=== PATIENT | female | born 1940 | race Caucasian/White ===

== ENCOUNTER 2023-05-30 09:20 | Outpatient (AMB) | payer MEDICARE, OTHER, SELFPAY ==
--- NOTE | 2023-05-30 10:24 | MHC.OFFWIV ---
Intake Vital Signs 05/30/23 10:36 Height 5 ft 9 in Weight 184 lb BMI 27.2 BP 130/68 Blood Pressure Location Lt brachial Position Sitting Pulse 97 Pulse Source Pulse Oximeter Temp 98.1 F Temp Source Oral Pulse Oximetry (%) 97 Oxygen Delivery Method Room Air Intake Visit Reasons: EP, sore throat, cough ([phone]) Intake Note: Pt is here today c/o sore throat coughing and nasal congestion x4days Allergies cyclobenzaprine [From Flexeril] Adverse Reaction (Verified 05/30/23 10:38) Unknown HPI HPI Comments History of Present Illness Details This is an 82-year-old female with a past medical history of hypertension, hyperlipidemia and hyperthyroidism presenting from home for evaluation of sore throat, cough and nasal congestion she has had for the past 4 days. Patient states that she has been sneezing and coughing over the past 4 days but denies having any fevers, chills, ear pain, chest pain or shortness of breath. Patient also denies having any recent sick contacts however states that her son recently and the will be held this coming week. Review of Systems Const All systems reviewed & are unremarkable except as noted in HPI and below Denies chills, Reports difficulty sleeping (secondary to cough), Reports fatigue and Denies fever(s) Eyes Reports no additional complaints ENT Reports as per HPI, Denies otalgia, Reports hoarseness, Reports nasal congestion and Reports sore throat Card Reports no additional complaints Resp Reports cough Skin/Breast Reports system reviewed and no additional complaints, except as documented Endo Reports fatigue Physical Exam Vital Signs: Last Vital Signs Temp 98.1 F 05/30/23 10:36 Pulse 97 05/30/23 10:36 BP 130/68 05/30/23 10:36 Pulse Ox 97 05/30/23 10:36 Oxygen Delivery Method Room Air 05/30/23 10:36 BMI result Body Mass Index 27.2 Patient is afebrile and not hypoxic. Const General: cooperative, comfortable, no acute distress and well developed Nutritional Appearance: average body habitus Orientation/consciousness: patient oriented x3 Limitations: no limitations HEENT Head: Yes normal to inspection and Yes normocephalic Ears: hearing grossly normal bilaterally, external ears normal, TM normal on the left, EAC's normal and TM abnormal (right TM with erythema, no fluid level, mild bulging) erythematous and with fluid behind the TM General nose exam: Normal external nose present Face and sinus: Yes normal facial exam, No sinus tenderness and No Facial tenderness on exam of face and sinuses Mouth: Normal oral and palatal mucosa present Teeth and gingiva: dentition normal Throat: Yes posterior oropharynx normal and No postnasal drainage Eyes Conjunctivae: conjunctivae normal Sclerae: sclerae normal Pupils: Equal, round and reactive pupils present Neck Lymphatic: no lymphadenopathy noted Resp Effort & Inspection: normal respiratory effort Auscultation: clear to auscultation bilaterally Cardio Rate: regular rate Rhythm: regular rhythm Skin General skin exam: no rashes or lesions noted Neuro General: patient oriented x3 Cranial nerves: Yes Equal, round and reactive pupils present Psych Appearance: grossly normal Mental Status: mental status grossly normal Affect: Sad affect present and No Anxious affect present Attitude: cooperative Thought process: Normal thought process present Thought content: Normal thought content present Insight: Good insight present (Psych) Judgement: Good judgement present (Psych) Results AMB Rapid Strep AMB Rapid Strep Negative Last Edit by Amee Rachel CMA on 05/30/23 10:51 Results Reviewed Results Reviewed: Laboratory Last Values Strep Scn [facility] Negative 05/30/23 10:43 Negative strep screen reviewed with patient. Assessment & Plan Assessment & Plan (1) Upper respiratory infection: Comment: Increase fluids daily, hot tea with honey, follow-up with PCP as needed. Code(s): J06.9 - Acute upper respiratory infection, unspecified (2) Right otitis media: Comment: Amoxicillin TID x 7 days Code(s): H66.91 - Otitis media, unspecified, right ear Orders: Orders AMB Rapid Strep Screen Today Z13.9 - Encounter for screening, unspecified Coding Level of Care Code New Pt Level 3 (98860) Diagnoses Upper respiratory infection J06.9 Right otitis media H66.91 Time Spent (min) 20
[2023-05-30 10:36] VITALS: BP 130/68; PULSE 97; TEMP 36.7; O2SAT 97; BMI 27.2
== END 2023-05-30 11:04 | disposition home or self-care (01) ==
PROVIDERS: PCP Physical Medicine & Rehabilitation; Visit Provider Physician Assistant
DX: J02.9 Acute pharyngitis, unspecified (principal)
CPT/HCPCS: 87880; 99203

== ENCOUNTER 2025-03-21 11:58 | Emergency (ER) | payer MEDICARE, OTHER, SELFPAY ==
--- NOTE | ~2025-03-21 | XR_ITS ---
EXAMINATION: XR CHEST CLINICAL INFORMATION: palpitations COMPARISON: None available. TECHNIQUE: 2 views of the chest were obtained. FINDINGS: Lungs clear. There is no pleural effusion. Heart size is within normal limits. There is atherosclerotic calcification in the aortic knob. XR/XR chest 2V IMPRESSION: No acute disease. Electronically signed by: Dallas Santiago MD 03/21/2025 12:55 PM EDT RP
--- NOTE | 2025-03-21 12:03 | ECG_ITS ---
Test Reason : AFIB Blood Pressure : */* mmHG Vent. Rate : 96 BPM Atrial Rate : * BPM P-R Int : * ms QRS Dur : 98 ms QT Int : 382 ms P-R-T Axes : * -17 22 degrees QTcB Int : 482 ms Atrial fibrillation Incomplete right bundle branch block Septal infarct , age undetermined Abnormal ECG No previous ECGs available Referred By: Generic ED Physician Electronically Signed By: John Phillips
--- NOTE | 2025-03-21 12:10 | ED.GENADULT ---
HPI - General Adult General Chief complaint: Arrhythmia/Palpitations Stated complaint: AFIB Time Seen by Provider: 03/21/25 12:58 Source: patient and old records reviewed Mode of arrival: ambulatory Limitations: no limitations History of Present Illness ED Provider: RIDDHI CORTÉS narrative: 84 yo female with PMH of hyperthyroidism on methimazole, HTN, HLD, who notes for the past week she has noted her HR has been up and down and her apple watch has told her tshe is in afib. She has never had this before. She denies chest pain. She sleeps in recliner at baseline so she denies orthopnea she does not feel her legs are swollen. She is on atenolol. She denies GIB symptoms, falls, prior bleeding. She states she is not interested in staying in the hospital. She has no hx of afib, no heart disease, no prior cardiac work up. Symptoms are on and off. MD complaint: afib Onset (ago): week(s) (1) Radiation: non-radiation Severity: mild Related Data Home Medications ?Medication ?Instructions ?Recorded ?Confirmed amitriptyline 25 mg tablet 25 mg PO BEDTIME 05/30/23 amlodipine 5 mg tablet 5 mg PO DAILY 05/30/23 atenolol 50 mg tablet 50 mg PO DAILY 05/30/23 atorvastatin 40 mg tablet 40 mg PO DAILY 05/30/23 diclofenac sodium 1 % topical gel topical 05/30/23 hydrochlorothiazide 25 mg tablet 25 mg PO DAILY 05/30/23 loratadine 10 mg tablet 10 mg PO DAILY 05/30/23 methimazole 5 mg tablet 5 mg PO DAILY 05/30/23 sennosides 8.6 mg-docusate sodium 1 tab PO BID PRN constipation 05/30/23 50 mg tablet (Stimulant Laxative Plus) tramadol 50 mg tablet 50 mg PO BID PRN 05/30/23 Previous Rx's ?Medication ?Instructions ?Recorded amoxicillin 500 mg capsule 500 mg PO TID #21 caps 05/30/23 apixaban 5 mg tablet (Eliquis) 5 mg PO BID #60 tabs 03/21/25 furosemide 20 mg tablet (Lasix) 20 mg PO DAILY 3 days #3 tabs 03/21/25 metoprolol succinate 50 mg capsule 50 mg PO DAILY #60 ea 03/21/25 sprinkle, ext. release 24 hr Allergies Allergy/AdvReac Type Severity Reaction Status Date / Time cyclobenzaprine (From AdvReac Unknown Verified 03/21/25 12:13 Flexeril) Review of Systems Review of Systems: Constitutional : No Fever, No Chills ENT/Mouth : No sore throat, No Rhinorrhea, No Swallowing Difficulty Eyes: No Eye Pain, No Swelling, No Redness Cardiovascular : No Chest Pain, positive SOB, No Orthopnea, no Edema, pos palpitations Respiratory : No Cough, No Sputum, No Wheezing, positive dyspnea Gastrointestinal : No Nausea, No Vomiting, No Diarrhea, No abdominal Pain, No Hematochezia, No Melena Genitourinary : No Dysuria, No Urinary Frequency, No Hematuria Musculoskeletal : No joint pain, No Myalgias Skin : No Skin Lesions, No rash Neuro : No Weakness, No Numbness, No Dizziness, No Headache All other systems reviewed and are negative [facility] Past Medical History Attestation statement: The following information was validated with the patient. Source: old records reviewed Medical History Afib HTN (hypertension) HLD (hyperlipidemia) Social History Social History (Updated 03/21/25 @ 14:10 by Alexandra Gomez DO) Patient Tobacco Use Status: Tobacco use Unknown Advance Directives: Yes Advance Directives Information Provided: Yes Advance Directives on File: No Physical Exam ED Vital Signs: Vital Signs - 24 hr 03/21/25 12:11 03/21/25 14:02 03/21/25 14:05 Temperature 97.7 F Pulse Rate 106 H 92 Respiratory Rate 18 Blood Pressure 126/71 124/79 126/71 Pulse Oximetry 99 Oxygen Delivery Method Room Air 03/21/25 14:22 03/21/25 15:34 Temperature 97.5 F Pulse Rate 100 84 Respiratory Rate 22 H 15 Blood Pressure 119/64 118/70 Pulse Oximetry 98 98 Oxygen Delivery Method Room Air Room Air BMI result Body Mass Index 26.0 Appearance: Alert. Oriented X3. No acute distress. Eyes: Pupils equal, round and reactive to light. ENT: Pharynx normal. Neck: Normal inspection. Neck supple. CVS: irregular heart rate and rhythm. Pulses normal. Respiratory: No respiratory distress. Breath sounds normal. Abdomen: Soft and nontender. Skin: Skin warm and dry. Normal skin color. Extremities: No lower extremity edema. Neuro: Oriented X 3. No motor deficit. No sensory deficit. Course Course Course Narrative: This is a Rapid Medical Examination (RME) performed by Navneet Abdul PA-C in triage. Full HPI, ROS, assessment and treatment plan per primary provider in the Main ED. Hx: 84 yo F here for eval of palpitations intermittently for 1.5 weeks. asoc chest tightness, dizziness, sob on exertion. her smart watch has been informing her she is in afib. no hx afib. PE/vitals: well appearing Plan: labs, ekg, cxr Medications Administered Discontinued Medications Generic Name Dose Route Start Last Admin Trade Name Freq PRN Reason Stop Dose Admin Furosemide 20 mg 03/21/25 13:38 03/21/25 14:05 Furosemide 20 Mg/2 Ml Vial IVPUSH 03/21/25 13:39 20 mg ONCE ONE Administration Protocol Metoprolol Tartrate 25 mg 03/21/25 13:38 03/21/25 14:02 Metoprolol Tartrate 25 Mg Tablet PO 03/21/25 13:39 25 mg ONCE ONE Administration Protocol Medical Decision Making Medical Decision Making [facility] Narrative: 84 yo female with PMH of hyperthyroidism on methimazole, HTN, HLD here with new onset afib at this time she will get labs, trop x 2, IV lasix, PO metoprolol - her atenolol will be held. I will start her on lasix 20mg daily and hold her amlodipine. Plan to start eliquis. She does not want admission to the hospital. She has no signs of symptoms to suggest VTE. I did offer admit for cards consult, ECHO Differential Diagnosis Differential Diagnoses: The differential diagnosis associated with the presentation includes afib, lyte abnormality denies CP/SOB doubt massive/submassive PE Admission/Observation Consideration of admission/observation: Escalation of care including admission/observation considered refuses admission will start on metoprolol and hold atenolol as well as eliquis denies bleeding history or issues her chadsvasc2 is 4 delt trop is negative does not want to stay Lab Data [facility] Lab Attestation statement: I reviewed the patient's lab results. 03/21/25 12:18 03/21/25 12:18 Labs: Lab Results 09/02/25 09/02/25 Range/Units 12:18 14:16 WBC 9.2 (4.8-10.8) X10*3/uL RBC 4.43 (4.20-5.50) X10*6/uL Hgb 12.7 (12.0-16.0) g/dl Hct 37.6 (37.0-47.0) % MCV 84.9 (80.0-98.0) fL MCH 28.7 (27.0-33.0) pg MCHC 33.8 (31.0-35.0) g/dl RDW 13.4 (11.0-16.0) % Plt Count 241 (160-400) X10*3/uL MPV 9.4 (9.4-12.3) fL Immature Gran % (Auto) 0.2 (0.0-0.4) % Neut % (Auto) 54.7 (45-73) % Lymph % (Auto) 34.4 (20-40) % Hodgeman % (Auto) 8.1 (2-11) % Eos % (Auto) 2.3 (0-4) % Baso % (Auto) 0.3 (0-2) % Lymph # (Auto) 3.2 (1.2-4.9) X10*3/uL Hodgeman # (Auto) 0.7 (0.1-1.2) X10*3/uL Eos # (Auto) 0.2 (0.0-0.4) X10*3/uL Baso # (Auto) 0.0 (0.0-0.2) X10*3/uL Abs Immat Gran (auto) 0.02 (0.00-0.03) X10*3/uL Absolute Neuts (auto) 5.0 (2.0-8.3) x10*3/uL Absolute Nucleated RBC 0.000 (0.0-0.012) X10*3/uL Nucleated RBC % (auto) 0.0 (0.0-0.2) /100WBC Sodium 142 (135-145) mmol/L Potassium 3.7 (3.3-5.1) mmol/L Chloride 101 (96-108) mmol/L Carbon Dioxide 31 H (22-29) mmol/L Anion Gap 14 (12-20) BUN 37 H (9-16) mg/dL Creatinine 1.43 H (0.5-1.4) mg/dL Estim Creat Clear Calc 30.5 Estimated GFR 35 Random Glucose 124 H (60-115) mg/dL Calcium 9.5 (8.4-10.2) mg/dL Magnesium 1.7 (1.6-2.6) mg/dL Total Bilirubin 0.5 (0.0-1.0) mg/dL AST 21 (5-31) U/L ALT 16 (0-31) U/L Alkaline Phosphatase 68 (39-117) U/L Troponin I High Sens 37.1 H 38.2 H (<3.5-17.0) ng/L B-Natriuretic Peptide 415 H (<100) pg/mL Total Protein 7.1 (6.5-8.0) g/dL Albumin 4.3 (3.5-5.0) g/dL Lipase 30 (8-78) U/L TSH 1.33 (0.32-4.0) uIU/mL Independent Interpretation I performed an independent interpretation of an: EKG and Plain X-Ray (no pneumonia no edema) Interpretation: Rate: 96 Rhythm: afib Preemption: left Normal QRS complex. ST T wave : no MAYNOR qTC: 482 prior studies: no prior The study has been interpreted contemporaneously by me. . Radiology Impression Discussion of test interpretation with radiology: I have reviewed the radiologist's reading. External Record Review External record reviewed: Outpatient record Prescription Management I considered prescription management with: Other Discharge Plan Discharge Clinical Impression: Atrial fibrillation Qualifiers: Atrial fibrillation type: paroxysmal Qualified Code(s): I48.0 - Paroxysmal atrial fibrillation Patient Disposition: Home, Self-Care Instructions: A-fib (Atrial Fibrillation) (ED), Blood Thinners (ED) Additional Instructions: you need to STOP your atenolol and amlodipine you need to see your primary care doctor and repeat labs in 2 days return for swelling, dizziness, chest pains, increased trouble breathing or any other concerns on a blood thinner seek medical care for head trauma, black or bloody stools, bleeding that wont stop call cardiology to schedule outpatient appointment it is okay to take tylenol but while on eliquis you cannot take aspirin, aleve, advil, motrin, ibuprofen you were offered admission but declined you are free to return at any time Prescriptions: New metoprolol succinate 50 mg capsule,sprinkle,ER 24hr 50 mg PO DAILY Qty: 60 0RF furosemide [Lasix] 20 mg tablet 20 mg PO DAILY 3 Days Qty: 3 0RF Eliquis 5 mg tablet 5 mg PO BID Qty: 60 1RF No Action amitriptyline 25 mg tablet 25 mg PO BEDTIME amlodipine 5 mg tablet 5 mg PO DAILY atenolol 50 mg tablet 50 mg PO DAILY loratadine 10 mg tablet 10 mg PO DAILY methimazole 5 mg tablet 5 mg PO DAILY atorvastatin 40 mg tablet 40 mg PO DAILY hydrochlorothiazide 25 mg tablet 25 mg PO DAILY sennosides-docusate sodium [Stimulant Laxative Plus] 8.6-50 mg tablet 1 tab PO BID PRN (Reason: constipation) tramadol 50 mg tablet 50 mg PO BID PRN diclofenac sodium 1 % gel topical amoxicillin 500 mg capsule 500 mg PO TID Qty: 21 0RF Print Language: Haitian
[2025-03-21 12:11] VITALS: BP 126/71; PULSE 106; RESP 18; TEMP 36.5; O2SAT 99; BMI 26.0
[2025-03-21 12:22] LABS: MANUAL DIFF FLAG NO
[2025-03-21 12:28] LABS: Hematocrit 37.6 % (37.0-47.0); Hemoglobin 12.7 g/dl (12.0-16.0); Imm Gran Abs Auto 0.02 X10*3/uL (0.00-0.03); Imm Gran Pct Auto 0.2 % (0.0-0.4); Lymphocytes Absolute Auto 3.2 X10*3/uL (1.2-4.9); Mean Corpuscular HGB Conc 33.8 g/dl (31.0-35.0); Mean Corpuscular Hemoglobin 28.7 pg (27.0-33.0); Mean Corpuscular Volume 84.9 fL (80.0-98.0); NRBC Abs Auto 0.000 X10*3/uL (0.0-0.012); NRBC Pct Auto 0.0 /100WBC (0.0-0.2); Platelet Count 241 X10*3/uL (160-400); Red Blood Count 4.43 X10*6/uL (4.20-5.50); White Blood Count 9.2 X10*3/uL (4.8-10.8)
[2025-03-21 12:45] LABS: Troponin-I High Sensitivity 37.1 ng/L (<3.5-17.0)
[2025-03-21 12:47] LABS: Alanine Aminotransferase 16 U/L (0-31); Albumin Level 4.3 g/dL (3.5-5.0); Alkaline Phosphatase 68 U/L (39-117); Anion Gap 14 (12-20); Aspartate Amino Transferase 21 U/L (5-31); Blood Urea Nitrogen 37 mg/dL (9-16); Calcium 9.5 mg/dL (8.4-10.2); Carbon Dioxide 31 mmol/L (22-29); Chloride 101 mmol/L (96-108); Creatinine Clr Calc Pharmacy 30.5; Estimated Glomerular Filt Rate 35; Lipase 30 U/L (8-78); Magnesium 1.7 mg/dL (1.6-2.6); Potassium 3.7 mmol/L (3.3-5.1); Sodium 142 mmol/L (135-145); Total Protein 7.1 g/dL (6.5-8.0)
[2025-03-21 12:53] LABS: B Type Natriuretic Peptide 415 pg/mL (<100)
[2025-03-21 14:02] VITALS: BP 124/79; PULSE 92
[2025-03-21 14:05] VITALS: BP 126/71
[2025-03-21] MEDS: Furosemide 20 MG/2 ML VIAL IVPUSH (14:05)
[2025-03-21 14:22] VITALS: BP 119/64; PULSE 100; RESP 22; O2SAT 98
[2025-03-21 14:48] LABS: Troponin-I High Sensitivity 38.2 ng/L (<3.5-17.0)
--- OUTSIDE RECORDS SUMMARY | 2025-03-21 15:09 | XMS_ITS | Encounter Summary ---
Author Organization [facility] Address [address] [place] [address] Care Team Providers Care Intelligence Clerk Name Role Phone Fabrice Marley Primary Care Provider [phone] Reason for Visit * Reason Onset Date Comments Irregular Heart Beat 03/21/2025 Dizziness 03/21/2025 Encounter Details Date Type Department Care Team ([facility] st Contact Info) Description 03/21/2025 Telephone Adult Medicine [address] [phone] Fabrice Marley PA [address] [place] [address] Social History Tobacco Use Types Packs/Day Years Used Date Smoking Tobacco: Never Smokeless Tobacco: Never Alcohol Use Standard Drinks/Week Comments Yes 0 (1 standard drink = 0.6 oz pur e alcohol) Housing Instability Answer Date Recorde d Are you worried that in the next 2 months you may not have stable housing? No 07/22/2024 Food Access & Nutrition Answer Date Rec orded Do you have access to a vari ety of food including fruits and vegetables? Yes 07/22/2024 Access to Healthcare Answer Date Record ed Within the last 3 months, ho w many times did you visit the emergency department for your medical care? 0 07/22/2024 Health Literacy Answer Date Recorded How often do you need to hav e someone help you when you read instructions, pamphlets, or other written material from your doctor or pharmacy? Never 07/22/2024 Caregiver: How often do you need to have someone help you when you read instructions, pamphlets, or other written material from your doctor or pharmacy? Not on file 07/22/2024 Financial Risk Answer Date Recorded How hard is it for you to pa y for the very basics like food, housing, medical care, and air conditioning / heating? Not very hard 07/22/2024 Transportation Answer Date Recorded Has the lack of transportati on kept you from meetings, work, or from getting things needed for daily living? No Has the lack of transportati on kept you from medical appointments or from getting medications? No 07/22/2024 Social Isolation Answer Date Recorded How often do you feel lonely or isolated from th ose around you? Never 07/22/2024 Food Risk Answer Date Recorded Within the past 12 months we worried whether our food would run out before we got money to buy more. Never true 07/22/2024 Within the past 12 months th e food we bought just didn't last and we didn't have money to get more. Never true 07/22/2024 Dependent Care Answer Date Recorded Do you need help finding or paying for care for your loved ones. For example, childbirth educator or elderly care for an older adult? No 07/22/2024 Education Answer Date Recorded Do you think completing more education or training, like finishing a GED, going to college, or learning a trade, would be helpful for you? No 07/22/2024 Employment and Income Answer Date Recor ded During the last four weeks, have you been actively looking for work? No 07/22/2024 Living Situation Answer Date Recorded What is your living situation? 0 07/22/2024 Comments No Sex and Gender Information Value Date Recorded Sex Assigned at Female 06/02/2024 1:03 PM EST Legal Sex Female 12:40 PM EST Gender Identity Female 06/02/2024 1:03 PM EST Sexual Orientation Choose not to disclose 2023 1:03 PM EST documented as of this encounter Progress Notes * Kyleigh Chairez RN - 03/21/2025 11:20 AM EDT Spoke with the pt Certain times of the day her chest feels tight No chest pressure or chest pain. When it is tight it is difficult to take a deep breath No chest congestion Feels it all the time phone picks up on it a couple times a day. Not occurring at this time She is sometimes a little dizzy, not light headed, no N/V, Prior to this was having a little tingling into the left rian hand. Arms feel equally as strong. Advised no available appt in office today and should be evaluated in the ER for her symptoms. Pt does not want to go to the ER Encouraged ER for eval of symptoms and to call after for follow up. * Brea Thomas - 03/21/2025 10:16 AM EDT Patient call requires triage: Symptoms patient is presenting: Afib,per watch, has been experiencing irregular heartbeat and dizziness. How long has patient had these symptoms?: Thu03/15/25 For ALL patients calling to schedule any appointment (routine, sick visit, follow up, consult, etc.) in the outpatient setting please ask the following questions: Do you have fever of higher than 101, sore throat with difficulty swallowing or severe shortness ofbreath? no If YES to any of these above symptoms, send a message to triage and do not book. Red dot. If no, an audio or video visit should be booked. Have you had close contact with someone with Coronavirus in the last 14 days? no Have you traveled abroad? no Have you traveled recently to another state outside of [place], [place], [place], [place], [place], [place], [place]? no o If yes, did you quarantine for 14 days or have a negative covid test? no If yes to any of the above, patient is not to be scheduled in office until after 14 day quarantine or negative covid test. If pain or injury related was it due to an accident at work or from a motor vehicle accident? If yes, date of accident/Injury: No If yes, gather 3rd alliance party insurance information Third Alliance Party Information: PCP: [facility]te Payor: MEDICARE / Plan: MEDICARE PART A & B / Product Type: Medicare / Irrregular heartbeat. documented in this encounter Plan of Treatment Upcoming Encounters Date Type Department Care Team (Late st Contact Info) Description 03/31/2025 1:00 PM EDT Office Visit Adult Medicine [address] [phone] Fabrice Marley PA [address] [place] [address] 08/03/2025 9:45 AM EST Office Visit Endocrinology [address] [phone] Lizzette Key MD [address] [place] [phone] documented as of this encounter Visit Diagnoses Not on filedocumented in this encounter Additional Health Concerns Assessment Noted Time PHQ-9 Depression Total Score: 0 07/22/19 8:23 AM EST A fall risk assessment has been complete d for the patient 07/22/2024 8:23 AM EST documented as of this encounter Care Teams Intelligence Clerk Relationship Specialty Start Date End Date Fabrice Marley PA [address] [place] [address] PCP - General Internal Medicine 08/30/20 documented as of this encounter
--- OUTSIDE RECORDS SUMMARY | 2025-03-21 15:09 | XMS_ITS ---
Author Name [facility] Organization Unknown Care Team Organization Name Specialty Phone Email Start Date End Da te [facility] 03/08/[address] [facility] Fabrice Marley Primary Care 05/27/2022
--- OUTSIDE RECORDS SUMMARY | 2025-03-21 15:09 | XMS_ITS | Clinical Summary ---
Author Organization [facility] [address] [place] [address] Address [address] [facility] [place] [address] Phone Care Team Providers Care Magnetic Healer Name Role Phone Fabrice Marley Primary Care Provider [phone] Allergies Active Allergy Reactions Criticality Noted Date Comments Cetyl Alcohol Medium 05/21/2012 Cyclobenzaprine Palpitations 07/22/2024 Metronidazole 11/05/2022 Pollen Extracts 11/25/2017 Medications amitriptyline (ELAVIL) 25 mg tablet Take 1 Tab by mouth at bedtime. 9 Active diclofenac (VOLTAREN) 1 % topical gel Apply 4 g topically 4 times daily as needed for Other (arthritis pain). 3 Active fluticasone propionate (FLONASE) 50 mcg/actuation nasal spray 2 Sprays by Each Nare route daily. 4 Active psyllium (METAMUCIL) powder Take by mouth daily Active polyethylene glycol (MIRALAX) 17 gram packet Take 17 g by mouth daily for 3 days. 3 Active aspirin 81 mg EC tablet 1 TABLET DAILY Activ e senna (SENOKOT) 8.6 mg tablet Take 1 tablet (8.6 mg total) by mouth 1 (one) time each day. 3 Active senna-docusate (PERICOLACE) 8.6-50 mg per tablet Take 1 Tablet by mouth 2 times daily as needed for Constipation. 3 Active triamcinolone acetonide (KENALOG-40 INJ) Route: Inject 1 mL into the articular space once for 1 dose. Active methIMAzole (TAPAZOLE) 5 mg tabletIndicatio ns:Hyperthyroid ism Take 1 tablet (5 mg total) by mouth 1 (one) time each day. 90 tablet 3 4 Active amLODIPine (NORVASC) 10 mg tablet Take 1 tablet (10 mg total) by mouth 1 (one) time each day. 90 each 1 5 Active furosemide (LASIX) 20 mg tablet TAKE 1 TABLET DAILY NEEDED FOR LEG SWELLING 90 tablet 3 5 Active hydroCHLOROthia zide (HYDRODIURIL) 25 mg tablet TAKE 1 TABLET DAILY 90 tablet 3 5 Active atorvastatin (LIPITOR) 40 mg tablet TAKE 1 TABLET DAILY 90 tablet 3 5 Active lidocaine (LIDODERM) 5 % patch APPLY 1 PATCH ONTO THE SKIN EVERY 24 HOURS. APPLY FOR NO MORE THAN 12 HOURS IN ANY 24 HOURS PERIOD 90 patch 3 5 Active traMADoL (ULTRAM) 50 mg tablet Take 1 tablet (50 mg total) by mouth 2 (two) times a day if needed for severe pain. Take 1 Tablet by mouth 2 times daily as needed for Pain. Max Daily Amount: 100 mg 14 tablet 5 Active atenoloL (TENORMIN) 50 mg tablet Take 1 tablet (50 mg total) by mouth 1 (one) time each day. 90 each 1 5 Active cetirizine (ZyrTEC) 10 mg tablet Take 1 tablet (10 mg total) by mouth 1 (one) time each day. 90 tablet 1 5 Active losartan (Cozaar) 25 mg tablet Take 1 tablet (25 mg total) by mouth 1 (one) time each day. 90 each 1 5 Active potassium chloride (Klor-Con) 20 mEq packet Take 20 mEq by mouth 1 (one) time each day. 30 packet 5 Active Active Problems Problem Noted Date Diagnosed Date Sacroiliac joint pain 11/21/2024 Chronic lower back pain 11/21/2024 Hypertension 11/21/2024 History of bilateral knee replacement 11/21/2024 Facet arthropathy, lumbosacral 11/21/2024 Constipation 11/21/2024 Basal cell carcinoma 11/21/2024 Aortic stenosis 09/29/2024 Microalbuminuria 11/04/2022 CKD (chronic kidney disease) stage 3, GFR 30-59 ml/min ([facility] V24, [facility] V28) 12/04/2021 Symptomatic varicose veins, bilateral 2021 Spinal stenosis of lumbar region 01/21/2019 Overview (04/24/2024): Follows with [facility] Overweight (BMI 25.0-29.9) 12/16/2018 Hyperthyroidism 10/07/2016 Overview (04/24/2024): Followed by Dr. Hansen Peripheral polyneuropathy 02/11/2016 Onychomycosis 09/10/2015 Prediabetes 12/29/2008 Urinary incontinence 12/27/2007 Carpal tunnel syndrome 05/13/2007 Overview (04/24/2024): Bilateral CTR Diverticulosis 12/10/2006 Overview (04/24/2024): also history of diverticulitis. Factor V Leiden mutation ([facility] V24) 6 Overview (04/24/2024): Per Dr Arauz biscuit maker anticoagulation not needed Allergic rhinitis 06/16/2005 Essential hypertension, benign 06/16/2005 Overview (04/24/2024): Last Assessment & Plan: Referred to PCP for improved control. Pure hypercholesterolemia 06/16/2005 Encounters Date Type Department Care Team Description 03/21/2025 Telephone Adult Medicine [address] [phone] Fabrice Marley PA 02/07/2025 8:56 AM EDT - 02/07/2025 11:59 PM EDT Hospital Encounter Radiology Department - [address] [phone] Multiple thyroid nodules Discharge Disposition: Home or Self Care 02/07/2025 Telephone Adult Medicine [address] [phone] Fabrice Marley PA 01/31/2025 11:00 AM EDT Office Visit Endocrinology [address] [phone] Lizzette Key MD Hyperthyroidism (Primary Dx); Multiple thyroid nodules 01/31/2025 Telephone Adult [address] [phone] Fabrice Marley PA 01/17/2025 8:30 AM EDT Office Visit Adult [address] [phone] Monique Smith PA Dizziness (Primary Dx); Fatigue, unspecified type; Constipation, unspecified constipation type; Decreased appetite; Hyperthyroidism 01/17/2025 Telephone Adult [address] [phone] Monique Smith PA 12/19/2024 12:30 PM EDT Office Visit Adult [address] [phone] Monique Smith PA Essential hypertension, benign (Primary Dx); Stage 3b chronic kidney disease ([facility] V24, [facility] V28) from Last 3 Months Immunizations Name Administration Dates Next Due H1N1 Inj Preservative Free 08/08/2009 Influenza Quadravalent, MDCK , 0.5ml, with preservative (Flucelvax) 6mo and older 03/26/2017 Influenza trivalent, 0.5mL ( Fluzone High-dose) 65yo and older 03/28/2024,03/25/2023,04/08/2022,03/01,04/07/2020,03/08/2018,03/31/2016 ,03/20/2015 Influenza trivalent, with pr eservative (Fluzone; Afluria) 6mo and older 04/23/2014,03/29/2013,04/06/2012,03/25,04/03/2010,04/20/2009,05/02/2008 ,04/19/2007,05/07/2006,04/21/2005 Influenza, Unspecified 04/08/2020,03/20/2019 Pfizer SARS-CoV-2 COVID-19, mRNA, LNP-S, preservative free 04/08/2022 Pneumococcal conjugate 13 va lent (Prevnar 13, PCV13) 2mo and older 02/14/2015 Pneumococcal polysaccharide 23 valent (Pneumovax 23) 2yo and older 05/10/2004 Td Tetanus diptheria (Tdvax) 7yo and older 09/28/2012,04/25/2002 Td, Unspecified 04/25/2002 Tdap Tetanus diptheria acell ular pertussis (Boostrix; Adacel) 7yo and older 06/21/2024 Zoster recombinant (Shingrix ) 19yo and older 12/23/2018,10/16/2018 Surgical History Surgery Date Site/Laterality Comments OTHER SURGICAL HISTORY PROCEDURE: HISTORY OTHER; COMMENT: vein stripping and injections COLONOSCOPY W/ BIOPSIES 11/29/2001 PROCEDURE: RI COLONOSCOPY W/BIOPSY SINGLE/MULTIPLE; COMMENT: Solitary diminutive tubular adenoma COLONOSCOPY W/ BIOPSIES 12/10/2006 PROCEDURE: RI COLONOSCOPY W/BIOPSY SINGLE/MULTIPLE; COMMENT: Diminutive polyp-tub adenoma TONSILLECTOMY PROCEDURE: HISTORICAL TONSILLECTOMY OTHER SURGICAL HISTORY 2010 PROCEDURE: HISTORY OTHER; COMMENT: bilat vein surgery laser dr morin COLONOSCOPY 08/20/2011 PROCEDURE: RI COLONOSCOPY FLX DX W/COLLJ SPEC WHEN PFRMD; COMMENT: diverticulosis; no polyps BREAST BIOPSY PROCEDURE: BX BREAST; PERC NEEDLE CORE W/IMAG GUID; COMMENT: cyst aspir TOTAL KNEE ARTHROPLASTY 2008 Right PROCEDURE: HISTORICAL TOTAL KNEE REPLACE CATARACT EXTRACTION PROCEDURE: HISTORICAL CATARACT REMOVAL APPENDECTOMY PROCEDURE: HISTORICAL APPENDECTOMY TOTAL KNEE ARTHROPLASTY Left PROCEDURE: HISTORICAL TOTAL KNEE REPLACE HYSTERECTOMY PROCEDURE: HISTORICAL TOTAL HYSTERECTOMY WITH BSO; COMMENT: done for family hx ovary and BRCA Medical History Medical History Date Comments Unspecified venous (peripher al) insufficiency 12/26/2005 DX:Unspecified venous (perip heral) insufficiency Carpal tunnel syndrome 05/13/2007 DX:Carpal tunnel syndrome Hyperthyroidism 10/07/2016 DX:Hyperthyroidi sm; COMMENT: Followed by Dr. Hansen History of basal cell carcin tyler of skin 01/13/2019 DX:History of basal cell car cinoma of skin; COMMENT: Left anterior thigh - ED&C 02/2006 Right upper posterior thigh/ Superficial type- imiquimod Left anterior tibia 12/2008. Superficial type - Right anterior thigh 12/2008. Superficial type Left deltoid 12/2009. Superficial type Left thigh 12/2009. Superficial type Right chest, infiltrative type 08/2017 - excised Mid upper back, superficial type, 09/08* History of squamous cell carcinoma 01/13/2019 DX:History of squamous cell carcinoma; COMMENT: Mid abdomen 02/2018, Right anterior tibia - ED&C August 2015, Allergic rhinitis 06/16/2005 DX:Allergic rh initis Diverticulosis 12/10/2006 DX:Diverticulosi s; COMMENT: also history of diverticulitis. Factor V Leiden mutation (CM S/HCC V24) 03/30/2006 DX:Factor V Leiden mutation (HCC); COMMENT: Per Dr Arauz correction anticoagulation not needed Osteoarthritis 05/29/2008 DX:Osteoarthriti s; COMMENT: Lumbar Spine, Shoulders, Hips, Feet Total knee replacement statu s, bilateral 01/21/2019 DX:Total knee replacement st atus, bilateral Spinal stenosis of lumbar region 01/21/2019 DX:Spinal stenosis of lumbar region Lumbar radiculitis 01/21/2019 DX:Lumbar rad iculitis Urinary incontinence 12/27/2007 DX:Urinary incontinence Pure hypercholesterolemia 06/16/2005 DX:Pur e hypercholesterolemia Prediabetes 12/29/2008 DX:Prediabetes Peripheral polyneuropathy 02/11/2016 DX:Per ipheral polyneuropathy Onychomycosis 09/10/2015 DX:Onychomycosis Obesity (BMI 30.0-34.9) 12/16/2018 DX:Obesi ty (BMI 30.0-34.9) History of colonic polyps 12/25/2005 DX:His tory of colonic polyps; COMMENT: Diminutive tubular adenoma x 1 at colonoscopy 11/29/2001. Diminutive colonic polyp at colonoscopy 12/10/2006: diminutive tubular adenoma. CN 08/20/2011: diverticulosis; no polyps. No screening needed in the future. Family history of ovarian cancer 08/08/2011 DX:Family history of ovarian cancer Family history of breast can cer in first degree relative 08/08/2011 DX:Family history of breast cancer in first degree relative Essential hypertension, benign 06/16/2005 D X:Essential hypertension, benign Change in bowel habits DX:Change in bowel habits History of diverticulitis DX:His tory of diverticulitis Constipation DX:Constipation Family History Medical History Relation Name Comments Breast cancer Brother 1 Prostate cancer Brother 2 Coronary artery disease Father Other: cancer,other Maternal Grandmother young-possibly breast or ovarian cancer Breast cancer Mother dx'd late 70s Ovarian cancer Mother dx'd late 70s CA Breast ag e 70 Breast cancer Son Other cancer Uncle maternal possib ly bone Relation Name Status Comments Brother 1 Brother 2 Brother 3 (Age 68) cancer nichole ast Brother 4 (Age 70) Brother 5 (Age 69) heart Brother 6 (Age 60'S) HEART Father Maternal Grandmother Mother dx'd late 70s breast cancer ovarian. Cancer Sister Alive 1/2 sisteer Son Alive Uncle Social History Tobacco Use Types Packs/Day Years Used Date Smoking Tobacco: Never Smokeless Tobacco: Never Tobacco Cessation:Counseling Given: Not Answered Alcohol Use Standard Drinks/Week Comments Yes 0 [...] care for your loved ones. For example, home child care provider or elderly care for an older adult? [...] not to disclose 2023 1:03 PM EST Obstetrics History Para Term AB IAB SAB Ectopic Multiple Livin g Live Births 2 2 2 2 Date Outcome GA Total Labor Labor/2nd/3rd Weight Sex Type Anes PTL Marie A1 A5 Name Clin Term Term Last Filed Vital Signs Vital Sign Reading Time Taken Comments Blood Pressure 120/58 01/31/2025 10:51 AM EDT Pulse 61 01/31/2025 10:51 AM EDT Temperature 36.6 C (97.9 F) 01/17/2025 7:52 AM EDT Respiratory Rate 14 01/31/2025 10:51 AM EDT Oxygen Saturation 100% 11/30/2024 8:58 AM EDT Inhaled Oxygen Concentration - - Weight 83.9 kg (185 lb) 01/31/2025 10:51 AM EDT Height 175.3 cm (5' 9 ) 01/31/2025 10:51 AM EDT Body Mass Index 27.32 01/31/2025 10:51 AM EDT Plan of Treatment Upcoming Encounters Date Type Department Care Team (Late st Contact Info) Description 03/31/2025 1:00 PM EDT Office Visit Adult Medicine [facility] [address] [place] [address] Fabrice Marley PA [address] [place] [phone] 08/03/2025 9:45 AM EST Office Visit Endocrinology [facility] [address] [place], [place] [phone] Lizzette Key MD [address] [place] [address] Health Maintenance Due Date Last Done Comments RSV Immunization Adult Patients (1 - 1-dose 75+ series) 2013 Medicare Annual Wellness Visit 06/15/2024 06/15/2023 COVID-19 Vaccine ( season) 2025 05/02/2023, 04/08/2022, 10/22/2021, Additional history exists Influenza Vaccine (#1) 2025 , 03/25/2023, 04/08/2022, Additional history exists Falls Risk Assessment 07/22/2025 07/22/2024, 023 Social Influencers of Health Screening 07/22/2025 07/22/2024 Hypertension/CHF/CAD Annual BMP Blood Test 01/31/2026 01/31/2025, 01/17/2025, 12/01/2024, Additional history exists Cholesterol Screening (Lipid Panel) 10/24/2029 10/24/2024, 06/22/2024, 12/28/2023, Additional history exists DTaP,Tdap,and Td Vaccines (5 - Td or Tdap) 06/21/2034 06/21/2024, 09/28/2012, 04/25/2002, Additional history exists Pneumococcal Vaccine: 50+ Years Completed 02/14/2015, 05/10/2004 Zoster Vaccines Completed 12/23/2018, 10/16/2018 Depression Screening Completed 07/22/2024, 06/15/20 23 HIB Vaccines Aged Out No longer eligi ble based on patient's age to complete this topic HPV Vaccines Aged Out No longer eligi ble based on patient's age to complete this topic Hepatitis A Vaccines Aged Out No long er eligible based on patient's age to complete this topic Hepatitis B Vaccines Aged Out No long er eligible based on patient's age to complete this topic IPV Vaccines Aged Out No longer eligi ble based on patient's age to complete this topic MMR Vaccines Aged Out No longer eligi ble based on patient's age to complete this topic Meningococcal ACWY Vaccine Aged Out N o longer eligible based on patient's age to complete this topic Meningococcal B Vaccine Aged Out No l onger eligible based on patient's age to complete this topic Osteoporosis Screening (Bone Density Screening) Discontinued RSV Immunization Patients Under 20 months Aged Out No longer eligible based on patient's age to complete this topic Varicella Vaccines Aged Out No longer eligible based on patient's age to complete this topic Procedures Procedure Name Priority Date/Time Associated Diagnosis Comments US HEAD NECK SOFT TISSUE Routine 02/07/2025 9:16 AM EDT Multiple thyroid nodules BASIC METABOLIC PANEL Routine 01/31/2025 11:44 AM EDT Hypokalemia COMPREHENSIVE METABOLIC PANEL Routine 01/17/2025 9:06 AM EDT Dizziness COMPLETE BLOOD COUNT Routine 01/17/2025 9:06 AM EDT Dizziness THYROID STIMULATING HORMONE WITH REFLEX TO FREE T4 AND FREE T3 Routine 01/17/2025 9:06 AM EDT Hyperthyroidism ECG 12-LEAD TRACING ONLY Routine 01/17/2025 8:53 AM EDT Dizziness LIPID PANEL WITH REFLEX TO DIRECT LDL Routine 10/24/2024 2:07 PM EDT Pure hypercholesterolem ia Hyperthyroidism Essential hypertension, benign HM DEPRESSION SCREENING Routine 06/15/2023 FALLS RISK ASSESSMENT Routine 06/15/2023 from Last 3 Months or Most Recently Relevant to Health Maintenance Results * US Head Neck Soft Tissue (02/07/2025 9:16 AM EDT) Anatomical Region Laterality Modality Head and Neck Ultrasound 02/07/2025 11:0 6 AM EDT Narrative 02/07/2025 11:10 AM EDT Thyroid ultrasound. History follow-up on thyroid nodules. Thyroid gland is heterogeneous in echotexture with increased vascularity on color Doppler examination and presence of innumerable bilateral nodules. Prior ultrasound on 03/29/2024. Comparison with prior studies is limited. The largest nodules were documented. Right thyroid lobe measures 5.6 x 2.3 x 2.4 cm, volume 16.2 cm. There is arm mostly cystic upper pole nodules with echogenic are foci measuring 0.9 x 0.8 x 0.8 cm, previously 1.2 x 0.8 x 0.8 cm. There is a solid mixed echogenicity circumscribed nodule in the midpole measuring 1.6 x 1.4 x 1.4 cm, previously 1.7 x 1.4 x 1.5 cm. There is a mixed echogenicity circumscribed nodule in the lower pole measuring 1.4 x 1.1 x 1.3 cm, previously 1.4 x 1.2 x 1.3 cm. Left thyroid lobe measures 5.1 x 2.4 x 2.3 cm, volume 14.7 cc. There is a circumscribed mixed echogenicity nodule in the upper pole measuring 1.1 x 1.7 x 1.4 cm, previously 1.1 x 1.8 x 1.3 cm. There is a mixed echogenicity circumscribed nodule with cystic and solid components in the lower pole measuring 1.3 x 1.2 x 1.6 cm, previously 1.4 x 1.8 x 2 cm. Isthmus measures 5 mm in thickness. CONCLUSIONS: Heterogeneous in echotexture multinodular thyroid gland with increased vascularity on color Doppler examination. Innumerable bilateral nodules with difficulties in comparison. The dominant nodules are without significant interval change or slightly smaller than on prior study. -------- FINAL REPORT -------- Dictated By: Riana Cobian Dictated Date: 02/07/2025 11:06 ET Assigned Physician: Riana Cobian Reviewed and Electronically Signed By: Riana Cobian Signed Date: 02/07/2025 11:10 ET Workstation ID: [id number] Transcribed By: Self Edit Transcribed Date: 02/07/2025 11:06 ET Procedure Note Riana Cobian MD - 02/07/2025 Thyroid ultrasound. History follow-up on thyroid nodules. Thyroid gland is heterogeneous in echotexture with increased vascularityon color Doppler examination and presence of innumerable bilateralnodules. Prior ultrasound on 03/29/2024. Comparison with prior studies is limited.The largest nodules were documented. Right thyroid lobe measures 5.6 x 2.3 x 2.4 cm, volume 16.2 cm. There isarm mostly cystic upper pole nodules with echogenic are foci measuring 0.9x 0.8 x 0.8 cm, previously 1.2 x 0.8 x 0.8 cm. There is a solid mixedechogenicity circumscribed nodule in the midpole measuring 1.6 x 1.4 x 1.4cm, previously 1.7 x 1.4 x 1.5 cm. There is a mixed echogenicitycircumscribed nodule in the lower pole measuring 1.4 x 1.1 x 1.3 cm,previously 1.4 x 1.2 x 1.3 cm. Left thyroid lobe measures 5.1 x 2.4 x 2.3 cm, volume 14.7 cc. There is acircumscribed mixed echogenicity nodule in the upper pole measuring 1.1 x1.7 x 1.4 cm, previously 1.1 x 1.8 x 1.3 cm. There is a mixed echogenicitycircumscribed nodule with cystic and solid components in the lower polemeasuring 1.3 x 1.2 x 1.6 cm, previously 1.4 x 1.8 x 2 cm. Isthmus measures 5 mm in thickness. CONCLUSIONS: Heterogeneous in echotexture multinodular thyroid gland withincreased vascularity on color Doppler examination. Innumerable bilateralnodules with difficulties in comparison. The dominant nodules are withoutsignificant interval change or slightly smaller than on prior study. -------- FINAL REPORT -------- Dictated By: Riana Cobian Dictated Date: 02/07/2025 11:06 ET Assigned Physician: Riana Cobian Reviewed and Electronically Signed By: Riana Cobian Signed Date: 02/07/2025 11:10 ET Workstation ID: [id number] Transcribed By: Self Edit Transcribed Date: 02/07/2025 11:06 ET Lizzette Key MD [facility] PROCEDURES Final Result * (ABNORMAL) Basic metabolic panel (01/31/2025 11:44 AM EDT) Sodium 135 133 - 145 mmol/L LAB CHEMISTRY METHOD 01/31/2025 4:49 PM [facility] Potassium 3.6 3.5 - 5.5 mmol/L LAB CHEMISTRY METHOD 01/31/2025 4:49 PM [facility] Chloride 99 96 - 110 mmol/L LAB CHEMISTRY METHOD 01/31/2025 4:49 PM [facility] CO2 29 21 - 32 mmol/L LAB CHEMISTRY METHOD 01/31/2025 4:49 PM [facility] Anion Gap 7 3 - 11 LAB CHEMISTRY METHOD 01/31/2025 4:49 PM [facility] Glucose 154(H) 70 - 100 mg/dL LAB CHEMISTRY METHOD 01/31/2025 4:49 PM [facility] BUN 23 5 - 25 mg/dL LAB CHEMISTRY METHOD 01/31/2025 4:49 PM [facility] Creatinine 1.40(H) 0.50 - 1.10 mg/dL LAB CHEMISTRY METHOD 01/31/2025 4:49 PM [facility] eGFR 37(L) >=60 mL/min/1. 73m2 LAB CHEMISTRY METHOD 01/31/2025 4:49 PM [facility] Comment:Calculation based on the Chronic Kidney Disease Epidemiology Collaboration (CKD-EPI) equation refit without adjustment for race. BUN/Creatinine Ratio 16.4 LAB CHEMISTRY METHOD 01/31/2025 4:49 PM EDT [facility] Calcium 10.1 8.5 - 10.5 mg/dL LAB CHEMISTRY METHOD 01/31/2025 4:49 PM EDT [facility] Blood Venous blood specimen / Unknown Venipuncture / Unknown 01/31/2025 11:44 AM EDT 01/31/2025 11:44 AM EDT us Monique Luis PA LAB BLOOD ORDERABLES Final Resul t Performing Organization Address [facility]/ZIP Co de Phone Number [facility] [address] [place] [address], [place] [phone] * Thyroid stimulating hormone with reflex to free t4 and free t3 (01/17/2025 9:06 AM EDT) TSH 1.76 0.40 - 4.00 mcIU/mL LAB CHEMISTRY METHOD 01/17/2025 2:59 PM EDT [facility] Blood Venous blood specimen / Unknown Venipuncture / Unknown 01/17/2025 9:06 AM EDT 01/17/2025 9:06 AM EDT us Monique VALLES LAB BLOOD ORDERABLES Final Resul t Performing Organization Address [facility]/ZIP Co de Phone Number [facility] [address] [place] [address], [place] [phone] * Complete blood count (01/17/2025 9:06 AM EDT) WBC 9.9 4.8 - 10.8 K/mcL LAB HEMETOLOGY METHOD 01/17/2025 11:22 AM EDT [facility] RBC 4.80 3.80 - 4.80 M/mcL LAB HEMETOLOGY METHOD 01/17/2025 11:22 AM EDT [facility] Hemoglobin 13.8 11.5 - 16.0 g/dL LAB HEMETOLOGY METHOD 01/17/2025 11:22 AM T [facility] Hematocrit 40.8 35.0 - 47.0 % LAB HEMETOLOGY METHOD 01/17/2025 11:22 AM [facility] MCV 85.2 79.0 - 98.0 FL LAB HEMETOLOGY METHOD 01/17/2025 11:22 AM T [facility] MCH 28.8 27.0 - 32.0 pcg LAB HEMETOLOGY METHOD 01/17/2025 11:22 AM [facility] MCHC 33.8 32.0 - 37.0 g/dL LAB HEMETOLOGY METHOD 01/17/2025 11:22 AM [facility] RDW 12.2 11.0 - 15.0 % LAB HEMETOLOGY METHOD 01/17/2025 11:22 AM [facility] Platelets 313 130 - 400 K/mcL LAB HEMETOLOGY METHOD 01/17/2025 11:22 AM [facility] MPV 9.9 7.0 - 11.0 FL LAB HEMETOLOGY METHOD 01/17/2025 11:22 AM [facility] NRBC 0.0 <1.0 % LAB HEMETOLOGY METHOD 01/17/2025 11:22 AM [facility] NRBC Absolute 0.00 <0.10 K/mcL LAB HEMETOLOGY METHOD 01/17/2025 11:22 AM [facility] Blood Venous blood specimen / Unknown Venipuncture / Unknown 01/17/2025 9:06 AM EDT 01/17/2025 9:06 AM EDT us Monique Luis VALLES LAB BLOOD ORDERABLES Final Resul t [facility] [address] [place] [address], * (ABNORMAL) Comprehensive metabolic panel (01/17/2025 9:06 AM EDT) Sodium 134 133 - 145 mmol/L LAB CHEMISTRY METHOD 01/17/2025 2:03 PM [facility] Potassium 3.1(L) 3.5 - 5.5 mmol/L LAB CHEMISTRY METHOD 01/17/2025 2:03 PM [facility] Chloride 94(L) 96 - 110 mmol/L LAB CHEMISTRY METHOD 01/17/2025 2:03 PM [facility] CO2 31 21 - 32 mmol/L LAB CHEMISTRY METHOD 01/17/2025 2:03 PM [facility] Anion Gap 9 3 - 11 LAB CHEMISTRY METHOD 01/17/2025 2:03 PM [facility] Glucose 147(H) 70 - 100 mg/dL LAB CHEMISTRY METHOD 01/17/2025 2:03 PM [facility] BUN 26(H) 5 - 25 mg/dL LAB CHEMISTRY METHOD 01/17/2025 2:03 PM [facility] Creatinine 1.49(H) 0.50 - 1.10 mg/dL LAB CHEMISTRY METHOD 01/17/2025 2:03 PM [facility] eGFR 34(L) >=60 mL/min/1. 73m2 LAB CHEMISTRY METHOD 01/17/2025 2:03 PM [facility] Comment:Calculation based on the Chronic Kidney Disease Epidemiology Collaboration (CKD-EPI) equation refit without adjustment for race. BUN/Creatinine Ratio 17.4 LAB CHEMISTRY METHOD 01/17/2025 2:03 PM [facility] Calcium 9.9 8.5 - 10.5 mg/dL LAB CHEMISTRY METHOD 01/17/2025 2:03 PM [facility] AST (SGOT) <3(L) 10 - 42 unit/L LAB CHEMISTRY METHOD 01/17/2025 2:03 PM EDT [facility] Comment:Results verified by repeat testing ALT (SGPT) 21 10 - 60 unit/L LAB CHEMISTRY METHOD 01/17/2025 2:03 PM EDT [facility] Alkaline Phosphatase 90 42 - 121 unit/L LAB CHEMISTRY METHOD 01/17/2025 2:03 PM T [facility] Total Protein 7.9 6.0 - 8.0 g/dL LAB CHEMISTRY METHOD 01/17/2025 2:03 PM EDT [facility] Albumin 4.0 3.2 - 5.0 g/dL LAB CHEMISTRY METHOD 01/17/2025 2:03 PM EDT [facility] Total Bilirubin 0.7 0.0 - 1.4 mg/dL LAB CHEMISTRY METHOD 01/17/2025 2:03 PM [facility] Blood Venous blood specimen / Unknown Venipuncture / Unknown 01/17/2025 9:06 AM EDT 01/17/2025 9:06 AM EDT [employer] Luis VALLES LAB BLOOD ORDERABLES Final Resul t [facility] [address] [place] [address], [place] [phone] * ECG 12 lead Tracing Only (01/17/2025 8:53 AM EDT) Impressions [place], [place] - 01/17/2025 8:53 AM EDT EKG done today reveals sinus rhythm with a heart rate of 60 bpm, no acute ST elevations. Reviewed with Dr. Mirza. [employer] Smith PA ECG ORDERABLES Final Result * (ABNORMAL) Lipid panel with reflex to direct LDL (10/24/2024 2:07 PM EDT) Cholesterol 241(H) 0 - 200 mg/dL LAB CHEMISTRY METHOD 10/24/2024 5:07 PM EDT [facility] Triglycerides 149 0 - 150 mg/dL LAB CHEMISTRY METHOD 10/24/2024 5:07 PM EDT [facility] HDL 76 >=40 mg/dL LAB CHEMISTRY METHOD 10/24/2024 5:07 PM EDT [facility] LDL Calculated 135(H) 0 - 100 mg/dL LAB CHEMISTRY METHOD 10/24/2024 5:07 PM EDT [facility] VLDL Cholesterol Grupo 29.8 mg/dL LAB CHEMISTRY METHOD 10/24/2024 5:07 PM EDT [facility] Non HDL Chol. (LDL+VLDL) 165(H) <145 mg/dL LAB CHEMISTRY METHOD [facility] Chol/HDL Ratio 3.2 0.0 - 4.4 LAB CHEMISTRY METHOD 10/24/2024 5:07 PM EDT [facility] Blood Venous blood specimen / Unknown Venipuncture / Unknown 10/24/2024 2:07 PM EDT 10/24/2024 2:07 PM EDT Fabrice VALLES LAB BLOOD ORDERABLES Judy l Result [facility] [address] [place] [address], * Falls Risk Assessment (06/15/2023) Falls Risk Assessment ABSTRACTED Historical Provider HEALTH MAINTENANCE Final Result * Depression Screening (06/15/2023) Depression Screening ABSTRACTED Historical Provider HEALTH MAINTENANCE Final Result from Last 3 Months or Most Recently Relevant to Health Maintenance Insurance MEDICARE [facility] Care Teams Magnetic Healer Relationship Specialty Start Date End Date Fabrice Marley PA [address] [place] [address] PCP - General Internal Medicine 08/30/20
[2025-03-21 15:34] VITALS: BP 118/70; PULSE 84; RESP 15; TEMP 36.4; O2SAT 98
[2025-03-21 16:05] VITALS: BP 118/70; PULSE 84; RESP 15; TEMP 36.4; O2SAT 98
== END 2025-03-21 16:05 | disposition home or self-care (01) ==
PROVIDERS: Physician Assistant Medical; Emergency Provider Emergency Medicine; PCP Physician Assistant Medical
DX: I48.0 Paroxysmal atrial fibrillation (principal); R00.2 Palpitations; E05.90 Thyrotoxicosis, unspecified without thyrotoxic crisis or storm; Z79.899 Other long term (current) drug therapy
CPT/HCPCS: 36415; 71046; 80053; 83690; 83735; 83880; 84443; 84484; 85025; 93005; 96374; 99284; 99285; J1938

== ENCOUNTER → 2025-03-21 12:03 | Outpatient (BNV) | payer MEDICARE, OTHER, SELFPAY | PROVIDERS: Emergency Provider Emergency Medicine; PCP Physician Assistant Medical; Visit Provider Internal Medicine Cardiovascular Disease | DX: I48.91 Unspecified atrial fibrillation (principal); I45.10 Unspecified right bundle-branch block | CPT/HCPCS: 93010 ==

== ENCOUNTER → 2025-03-21 12:12 | Outpatient (BNV) | payer MEDICARE, SELFPAY | PROVIDERS: Emergency Provider Emergency Medicine; PCP Physician Assistant Medical; Visit Provider Radiology Diagnostic Radiology | DX: R00.2 Palpitations (principal) | CPT/HCPCS: 71046 ==